=== PATIENT | female | born 1970 | race Caucasian/White ===

== ENCOUNTER 2019-07-24 16:18 | Observation (INO) | payer BC ==
[~2019-07-24] VITALS: Ht 165.1 cm; Wt 63.4 kg
[2019-07-24 16:51] LABS: COLLECTION METHOD CLEAN CATCH
[2019-07-24 17:00] LABS: BASO % 0.3 % (0.0-2.0); EOS # 0.1 (0.0-0.7); EOS % 0.9 % (0-4.0); GRAN # 4.2 (1.4-6.5); GRAN % 63.3 % (42.2-75.2); HEMATOCRIT 37.7 % (37.0-47.0); HEMOGLOBIN 12.6 g/dl (12.5-16.0); LYMPH % 29.7 % (20.0-51.0); MEAN CELL VOLUME 94 fl (80.0-100.0); MEAN CORPUSCULAR HEMOGLOBIN 31 pg (27.0-31.0); MEAN CORPUSCULAR HGB CONC 33 g/dl (33.0-37.0); MEAN PLATELET VOLUME 10.8 fl (7.4-10.4); MONO # 0.4 (0.1-0.6); MONO % 5.6 % (1.7-9.3); PLATELET COUNT 217 K/mm3 (130-400); RED BLOOD COUNT 4.01 M/mm3 (4.10-5.30); REDCELL DISTRIBUTION WIDTH-CV 12.4 % (11.5-14.5)
[2019-07-24 17:06] LABS: MUCOUS Present /lpf; PH 5 (5-8); SQUAMOUS EPITHELIAL 0-2 /hpf; URINE APPEARANCE Hazy; URINE BACTERIA None Seen /hpf; URINE BILIRUBIN Negative (NEGATIVE); URINE BLOOD Negative (NEGATIVE); URINE CALCIUM OXALATE CRYSTAL Present /hpf; URINE COLOR Yellow; URINE GLUCOSE Negative (NEGATIVE); URINE KETONE Negative (NEGATIVE); URINE LEUKOCYTE ESTERASE Negative (NEGATIVE); URINE NITRATE Negative (NEGATIVE); URINE PROTEIN(semi-quant) Negative (NEGATIVE); URINE RBC 0-2 /hpf; URINE UROBILINOGEN Negative (NEGATIVE)
[2019-07-24 17:14] LABS: ALANINE AMINOTRANSFERASE 63 U/L (9-52); ALBUMIN 4.5 gm/dL (3.5-5.0); ALKALINE PHOSPHATASE 124 U/L (50-136); ANION GAP 9 mmol/L (7-16); AST,SGOT 48 U/L (15-37); BILIRUBIN,TOTAL 0.4 mg/dL (0.0-1.0); BLOOD UREA NITROGEN 14 mg/dL (7-17); CALCIUM 9.5 mg/dL (8.4-10.2); CARBON DIOXIDE 27 mmol/L (22-30); CHLORIDE 105 mmol/L (98-107); CREATININE, serum 0.81 (0.52-1.25); GLUCOSE 104 mg/dL (74-106); LIPASE 143 U/L (23-300); POTASSIUM 3.3 mmol/L (3.4-5.0); SODIUM 141 mmol/L (137-145); TOTAL PROTEIN 7.3 gm/dL (6.4-8.2)
[2019-07-24 17:15] LABS: C-REACTIVE PROTEIN < 0.5 mg/dL (0.0-0.9)
[2019-07-24 19:59] VITALS: BP 110/67; PULSE 57; TEMP 98.8
[2019-07-24] MEDS ORDERED: B-121000 MCG PO (20:21)
[2019-07-24] MEDS ORDERED: VITAMIN D 1001000 IU (20:22)
[2019-07-24] MEDS ORDERED: LEXAPRO 10MG10 MG PO (20:22)
[2019-07-24] MEDS ORDERED: MULTIPLE VITAMI1 CAP PO (20:22)
[2019-07-24] MEDS ORDERED: PRIL40 PO (20:23)
[2019-07-24] MEDS ORDERED: DESYREL 100MG100 MG PO (20:23)
[2019-07-24] MEDS ORDERED: BELSOMRA10 MG PO (20:23)
[2019-07-24 20:57] LABS: MAGNESIUM 1.8 mg/dL (1.6-2.3)
[2019-07-24 21:29] LABS: TSH w REFLEX 2.02 uIU/mL (0.465-4.680)
[2019-07-25 00:03] VITALS: BP 93/51; PULSE 56; TEMP 98.9
[2019-07-25 05:17] VITALS: BP 93/52; PULSE 60; TEMP 98.9
[2019-07-25 07:49] LABS: BASO % 0.5 % (0.0-2.0); EOS # 0.1 (0.0-0.7); EOS % 1.7 % (0-4.0); GRAN # 2.2 (1.4-6.5); GRAN % 52.6 % (42.2-75.2); HEMOGLOBIN 10.9 g/dl (12.5-16.0); LYMPH # 1.6 (1.2-3.4); LYMPH % 37.6 % (20.0-51.0); MEAN CELL VOLUME 96 fl (80.0-100.0); MEAN CORPUSCULAR HEMOGLOBIN 31 pg (27.0-31.0); MEAN CORPUSCULAR HGB CONC 32 g/dl (33.0-37.0); MEAN PLATELET VOLUME 11.7 fl (7.4-10.4); MONO # 0.3 (0.1-0.6); MONO % 7.1 % (1.7-9.3); PLATELET COUNT 161 K/mm3 (130-400); RED BLOOD COUNT 3.53 M/mm3 (4.10-5.30); REDCELL DISTRIBUTION WIDTH-CV 12.7 % (11.5-14.5)
[2019-07-25 07:51] LABS: HEMATOCRIT 33.7 % (37.0-47.0)
[2019-07-25 08:11] LABS: ALBUMIN 3.3 gm/dL (3.5-5.0); BILIRUBIN,TOTAL 0.4 mg/dL (0.0-1.0); CALCIUM 8.5 mg/dL (8.4-10.2); CREATININE, serum 0.71 (0.52-1.25); POTASSIUM 4.2 mmol/L (3.4-5.0); TOTAL PROTEIN 5.7 gm/dL (6.4-8.2)
[2019-07-25 08:30] VITALS: BP 98/54; PULSE 87; TEMP 98.1
[2019-07-25 08:53] VITALS: BP 96/61; PULSE 60; TEMP 99.6
--- NOTE | 2019-07-25 10:00 | NUR ---
Patient alert and oriented, answers questions appropriately. See assessment. Abdomen soft, non tender, non distended. Bowel sounds active x4 quads. +Flatus. No c/o n/v. No other c/o at this time.
[2019-07-25 11:22] VITALS: BP 93/60; PULSE 61; TEMP 99
--- NOTE | 2019-07-25 12:25 | NUR ---
Box Tender stopped by and offered prayer and support with patient.
[2019-07-25] MEDS ORDERED: TYLENOL 325MG325 MG PO (15:05)
[2019-07-25] MEDS ORDERED: ZOFRAN 4MG T4 MG/TAB PO (15:06)
[2019-07-25] MEDS ORDERED: NORCO 325 MG-51 TAB PO (15:06)
[2019-07-25 16:04] VITALS: BP 101/62; PULSE 60; TEMP 98.8
--- NOTE | 2019-07-25 16:05 | NUR ---
Plan: Return home with [place] . Sw met with patient about DC. Patient reports that she lives in [facility]. Patient reports PCP as Dr. Vega. Patient reports that she uses [facility] for [facility]. Patient denies any DME supports, no POA assigned and has good care. Patient reports that her spouse will transport her home. Patient denies having any addtional needs. SW educated on resources and supports, nothing follows.
--- NOTE | 2019-07-25 16:29 | NUR ---
Discharge instructions reviewed with patient and family, verbalized understanding. Discharged ambulatory to auto/home with family at 1620.
== END 2019-07-25 16:20 | disposition home or self-care (01) ==
LOC: COL.ER 16:18 → SURG 18:55
PROVIDERS: Emergency Medicine; Nurse Practitioner Family; ADMIT Internal Medicine
DX: K56.7 Ileus, unspecified (principal); K22.70 Barrett's esophagus without dysplasia; Z98.84 Bariatric surgery status; Z90.49 Acquired absence of other specified parts of digestive tract; Z90.710 Acquired absence of both cervix and uterus; F41.9 Anxiety disorder, unspecified; F32.9 Major depressive disorder, single episode, unspecified; Z79.899 Other long term (current) drug therapy; E87.6 Hypokalemia; G47.00 Insomnia, unspecified
CPT/HCPCS: C9113; G0378; J1170; J2405; J3010; J3480; J7030; Q9967